=== PATIENT | female | born 1980 | race African-American/Black ===

== ENCOUNTER 2022-10-04 12:34 | Observation (INO) | payer BC ==
[2022-10-04 12:40] VITALS: BMI 29.7
[2022-10-04 13:40] LABS: INR 1.19 (0.83-1.09); PROTHROMBIN TIME (PATIENT) 13.8 SEC (9.7-13.0)
[2022-10-04 13:43] LABS: ACTIVATED PTT 35.8 SECONDS (25.2-36.5)
[2022-10-04 13:51] LABS: BASO % 0.4 % (0-2.0); CHLORIDE 107 mmol/L (98-107); HEMATOCRIT 35.3 % (32.4-45.2); HEMOGLOBIN 11.8 GM/dL (10.7-15.3); LYMPH % 38.5 % (8-40); MCH 29.4 pg (25.7-33.7); MCHC 33.4 g/dl (32.0-36.0); MEAN CELL VOLUME 87.8 fl (80-96); MEAN PLT VOLUME 9.6 fl (7.5-11.1); MONO % 8.9 % (3.8-10.2); NEUT % 48.2 % (42.8-82.8); PLATELET COUNT 263 10^3/uL (134-434); RBC 4.02 M/mm3 (3.60-5.2); RDW 14.5 % (11.6-15.6); SODIUM 137 mmol/L (136-145); WHITE BLOOD COUNT 6.1 K/mm3 (4.0-10.0)
[2022-10-04 13:54] LABS: CALCIUM 8.8 mg/dL (8.5-10.1)
[2022-10-04 13:55] LABS: ALBUMIN 3.8 g/dl (3.4-5.0); ANION GAP 2 MMOL/L (8-16); BLOOD UREA NITROGEN 8.8 mg/dL (7-18); CO2 28 mmol/L (21-32); GLUCOSE,RANDOM 82 mg/dL (74-106)
[2022-10-04 13:58] LABS: CREATININE 0.6 mg/dL (0.55-1.3); SGOT/AST 13 U/L (15-37); SGPT/ALT 16 U/L (13-61)
[2022-10-04 14:00] LABS: BILIRUBIN,TOTAL 0.5 mg/dL (0.2-1); TOT PROT 7.8 g/dl (6.4-8.2)
[2022-10-04 14:01] LABS: ALK PHOS 72 U/L (45-117)
[2022-10-04] MEDS ORDERED: ASPIRIN 81 MG CHEWABLE TABLETS PO ONE (14:45)
[2022-10-04] MEDS ORDERED: ACETAMINOPHEN 1000 MG/100 ML BAG IVPB ONE (14:47)
[2022-10-04 14:54] LABS: CHOLESTEROL 82 mg/dL (50-200)
[2022-10-04 14:55] LABS: TRIGLYCERIDES 35 mg/dL (0-150)
[2022-10-04 14:56] LABS: LDL CHOLESTEROL (ONLY SJRH) 21 mg/dL (5-100)
[2022-10-04 14:57] LABS: HDL CHOLESTEROL 63 mg/dL (40-60)
[2022-10-04] MEDS ORDERED: ASPIRIN 81 MG CHEWABLE TABLETS ONE (15:43)
[2022-10-04] MEDS ORDERED: ACETAMINOPHEN INJECTION 100 ML IVPB ONE (15:44)
[2022-10-05] MEDS ORDERED: ACETAMINOPHEN 325 MG TABLET (FP) PO ONE (05:52)
[2022-10-05 08:36] LABS: BASO % 0.5 % (0-2.0); EOS % 2.7 % (0-4.5); HEMATOCRIT 33.5 % (32.4-45.2); HEMOGLOBIN 11.3 GM/dL (10.7-15.3); LYMPH % 28.7 % (8-40); MCH 29.8 pg (25.7-33.7); MCHC 33.9 g/dl (32.0-36.0); MEAN PLT VOLUME 9.1 fl (7.5-11.1); MONO % 6.9 % (3.8-10.2); NEUT % 61.2 % (42.8-82.8); PLATELET COUNT 242 10^3/uL (134-434); RBC 3.81 M/mm3 (3.60-5.2); RDW 14.2 % (11.6-15.6); WHITE BLOOD COUNT 6.7 K/mm3 (4.0-10.0)
[2022-10-05 08:48] LABS: ALBUMIN 3.2 g/dl (3.4-5.0); BLOOD UREA NITROGEN 6.9 mg/dL (7-18); CALCIUM 8.4 mg/dL (8.5-10.1)
[2022-10-05 08:51] LABS: CREATININE 0.6 mg/dL (0.55-1.3)
[2022-10-05 08:53] LABS: BILIRUBIN,TOTAL 0.4 mg/dL (0.2-1)
[2022-10-05] MEDS ORDERED: ACETAMINOPHEN 325 MG TABLET (FP) PO PRN (10:42)
[2022-10-05] MEDS: ENOXAPARIN NA (PORCINE) 40 MG/0.4 ML DISP.SYRIN SQ SCH (14:17)
[2022-10-06] MEDS: ENOXAPARIN NA (PORCINE) 40 MG/0.4 ML DISP.SYRIN SQ SCH (10:56)
[2022-10-07 07:18] LABS: HEMATOCRIT 33.2 % (32.4-45.2); HEMOGLOBIN 11.2 GM/dL (10.7-15.3); MCH 29.6 pg (25.7-33.7); MCHC 33.6 g/dl (32.0-36.0); MEAN CELL VOLUME 88.3 fl (80-96); MEAN PLT VOLUME 9.1 fl (7.5-11.1); PLATELET COUNT 239 10^3/uL (134-434); RBC 3.77 M/mm3 (3.60-5.2); RDW 14.2 % (11.6-15.6); WHITE BLOOD COUNT 5.9 K/mm3 (4.0-10.0)
[2022-10-07 07:51] LABS: BLOOD UREA NITROGEN 8.3 mg/dL (7-18); CALCIUM 8.7 mg/dL (8.5-10.1); MAGNESIUM 1.8 mg/dL (1.8-2.4)
[2022-10-07 07:55] LABS: CREATININE 0.5 mg/dL (0.55-1.3); PHOSPHOROUS 3.1 mg/dL (2.5-4.9)
[2022-10-07] MEDS: ENOXAPARIN NA (PORCINE) 40 MG/0.4 ML DISP.SYRIN SQ SCH (10:33)
[2022-10-07 14:08] VITALS: BP 101/60; PULSE 84; TEMP 98.9
[2022-10-07 17:15] VITALS: RESP 20
== END 2022-10-07 17:55 | disposition home or self-care (01) ==
LOC: JER 12:34 → JERBED 15:21 → J4S 17:01
PROVIDERS: ADMIT Internal Medicine; ATTEND Internal Medicine
PROC: 3E033NZ Introduction of Analgesics, Hypnotics, Sedatives into Peripheral Vein, Percutaneous Approach (ICD-10-PCS; principal; 2022-10-04)
PROC: 3E023GC Introduction of Other Therapeutic Substance into Muscle, Percutaneous Approach (ICD-10-PCS; 2022-10-04)
DX: G45.9 Transient cerebral ischemic attack, unspecified (principal); U07.1 COVID-19; R07.9 Chest pain, unspecified
CPT/HCPCS: 0241U-QW; 36415; 70450-TC; 70496-TC; 70498-TC; 70551-TC; 71045-TC-FY; 80048; 80053; 80061; 82550; 83036; 83735; 84100; 84443; 84484; 85025; 85027; 85379; 85610; 85651; 85730; 86140; 93005; 93010; 93306-TC; 93880-TC; 97116-GP; 97161-GP; 99291; G0378

== ENCOUNTER 2023-01-31 22:18 | Emergency (ER) | payer BC ==
[2023-01-31 22:31] VITALS: BP 102/63; PULSE 80; RESP 18; TEMP 98.3; BMI 29.6
[2023-01-31 23:22] LABS: BASO % 0.5 % (0-2.0); EOS % 2.8 % (0-4.5); HEMATOCRIT 36.4 % (32.4-45.2); HEMOGLOBIN 12.2 GM/dL (10.7-15.3); LYMPH % 32.5 % (8-40); MCH 28.5 pg (25.7-33.7); MCHC 33.5 g/dl (32.0-36.0); MEAN PLT VOLUME 8.2 fl (7.5-11.1); MONO % 7.5 % (3.8-10.2); NEUT % 56.7 % (42.8-82.8); PLATELET COUNT 299 10^3/uL (134-434); RBC 4.29 M/mm3 (3.60-5.2); RDW 15.1 % (11.6-15.6); WHITE BLOOD COUNT 8.2 K/mm3 (4.0-10.0)
[2023-02-01 00:34] LABS: EPI CELLS 14 /uL (0-25.1); HYALINE CASTS 1 /uL (0-3.1); PH,URINE 5.5 (5.0-8.0); URINE APPEARANCE CLOUDY; URINE BACTERIA 128 /uL (0-1359); URINE BILIRUBIN NEGATIVE (NEGATIVE); URINE COLOR ORANGE; URINE GLUCOSE (UA) NEGATIVE (NEGATIVE); URINE KETONE TRACE (NEGATIVE); URINE LEUK ESTERASE 1+ (NEGATIVE); URINE NITRITE NEGATIVE (NEGATIVE); URINE PROTEIN 2+ (NEGATIVE); URINE RBC 15502 /uL (0-23.9); URINE WBC 28 /uL (0-25.8)
[2023-02-01] MEDS ORDERED: IBUPROFEN 600 MG TABLET (FP) PO ONE ×2 (01:07→01:22)
== END 2023-02-01 02:03 | disposition home or self-care (01) ==
LOC: JER 22:18
DX: N93.9 Abnormal uterine and vaginal bleeding, unspecified (principal); R53.1 Weakness; R10.2 Pelvic and perineal pain
CPT/HCPCS: 36415; 76830-TC; 81003; 84703; 85025; 87086; 87186; 99284-25

== ENCOUNTER 2024-04-21 21:30 | Emergency (ER) | payer BC ==
[2024-04-21 21:42] VITALS: BP 101/66; PULSE 67; RESP 20; TEMP 97.7; BMI 32.1
[2024-04-21] MEDS ORDERED: ACETAMINOPHEN 325 MG TABLET (FP) ONE (22:20)
[2024-04-21] MEDS: ACETAMINOPHEN 500 MG TABLET (FP) PO ONE (22:24)
[2024-04-21 22:59] LABS: PH,URINE 6.5 (5.0-8.0); URINE APPEARANCE CLOUDY; URINE BILIRUBIN NEGATIVE (NEGATIVE); URINE COLOR YELLOW; URINE GLUCOSE (UA) NEGATIVE (NEGATIVE); URINE KETONE TRACE (NEGATIVE); URINE LEUK ESTERASE NEGATIVE (NEGATIVE); URINE NITRITE NEGATIVE (NEGATIVE); URINE PROTEIN TRACE (NEGATIVE)
[2024-04-21 23:02] LABS: HCG,QUALITATIVE URINE Negative
== END 2024-04-22 00:03 | disposition home or self-care (01) ==
LOC: JER 21:30
DX: R10.32 Left lower quadrant pain (principal); M54.50 Low back pain, unspecified; G89.29 Other chronic pain
CPT/HCPCS: 76830-TC; 81003; 84703; 87086; 99284-25